=== PATIENT | male | born 1980 | race African-American/Black ===

== ENCOUNTER 2017-11-30 15:29 | Emergency (ER) | payer MEDICAID ==
[~2017-11-30] VITALS: Ht 177.8 cm; Wt 72.6 kg
[2017-11-30 17:36] VITALS: BP 122/82
== END 2017-11-30 18:10 | disposition home or self-care (01) ==
LOC: ER 15:32
DX: J02.9 Acute pharyngitis, unspecified (principal); F17.210 Nicotine dependence, cigarettes, uncomplicated; Z88.1 Allergy status to other antibiotic agents

== ENCOUNTER 2018-02-27 01:06 | Emergency (ER) | payer MEDICAID ==
[~2018-02-27] VITALS: Ht 180.3 cm; Wt 81.6 kg
[2018-02-27 01:10] VITALS: BP 133/93
== END 2018-02-27 04:45 | disposition left against medical advice (07) ==
LOC: EDBD 01:06 → ER 01:06
DX: F29 Unspecified psychosis not due to a substance or known physiological condition (principal); Z76.0 Encounter for issue of repeat prescription; Z53.21 Procedure and treatment not carried out due to patient leaving prior to being seen by health care provider